=== PATIENT | female | born 1990 | race Caucasian/White ===

== ENCOUNTER → 2017-07-17 12:27 | Outpatient (CLI) | payer MEDICAID, SELFPAY | PROVIDERS: Family Provider Obstetrics & Gynecology Maternal & Fetal Medicine; Visit Provider Obstetrics & Gynecology Maternal & Fetal Medicine | DX: Z34.81 Encounter for supervision of other normal pregnancy, first trimester (principal) | CPT/HCPCS: 36415 ==

== ENCOUNTER → 2017-08-14 10:23 | Outpatient (CLI) | payer MEDICAID, SELFPAY | PROVIDERS: Visit Provider Obstetrics & Gynecology Maternal & Fetal Medicine | DX: Z36.9 Encounter for antenatal screening, unspecified (principal) | CPT/HCPCS: 36415 ==